=== PATIENT | female | born 1970 | race Caucasian/White ===

== ENCOUNTER 2020-02-23 16:09 | Outpatient (REF) | payer MEDICAID, SELFPAY ==
--- NOTE | 2020-02-23 14:40 | PAPFT_PTH ---
PATIENT: TERRY CHILDRESS LOC: [facility] [id number] AGE/SX: 49/F ROOM: RE02/23/[address]: Colt Rivera MD : 1970 BED: DIS: 02/23/2020 SPEC #: [id number] RECD: 02/23/20 18:30 STATUS: BOUBACAR REQ #: [id number] [place]: 02/23/20 14:[address]: Colt Rivera DEPT: [facility] Cytology RECD BY: Brandie Machado ENTERED: 02/23/20 18:30 SP TYPE: PAPFT OTHR DR: Unknown,Unknown Tissues: 1 - CX/ENDOCX FOR PAP SMEARS Procedures: PAP THIN PREP/[facility] Screening HPV DNA PROBE Comments: [id number]
== END 2020-02-23 16:29 ==
LOC: LBN 16:09
PROVIDERS: Visit Provider Obstetrics & Gynecology
DX: Z12.4 Encounter for screening for malignant neoplasm of cervix (principal); Z11.51 Encounter for screening for human papillomavirus (HPV)
CPT/HCPCS: 88142; 87624